=== PATIENT | female | born 1990 | race Caucasian/White ===

== ENCOUNTER 2016-10-03 23:35 | Observation (INO) | payer BC, OTHER ==
[~2016-10-03] VITALS: Ht 154.9 cm; Wt 64.9 kg
== END 2016-10-04 01:15 | disposition home or self-care (01) ==
LOC: SPU 23:35
PROVIDERS: ADMIT Specialist; ATTEND Specialist
DX: O62.9 Abnormality of forces of labor, unspecified (principal); Z3A.38 38 weeks gestation of pregnancy
CPT/HCPCS: 81002; G0378 ×2

== ENCOUNTER 2016-10-05 19:23 | Inpatient (IN) | payer BC ==
[~2016-10-05] VITALS: Ht 154.9 cm; Wt 64.9 kg
[2016-10-05] MEDS: LR 1,000 ML IV SCH (20:22)
[2016-10-05] MEDS ORDERED: OXYTOCIN/NORMAL SALINE 1,000 ML IV SCH (21:24)
[2016-10-05] MEDS ORDERED: TERBUTALINE SULFATE 1 MG/ML VIAL SUBCUT ONE (21:30)
[2016-10-05] MEDS ORDERED: NALBUPHINE HCL 10 MG/ML AMP IVP PRN (21:30)
[2016-10-05 22:37] LABS: WHITE BLOOD COUNT (AUTO) 12.3 K/uL (4.8-10.8)
[2016-10-05 22:41] LABS: HEMATOCRIT 30.9 % (36-48); HEMOGLOBIN 10.3 g/dL (12.0-16.0); MEAN CORPUSCULAR HEMOGLOBIN 27 pg (27-31); MEAN CORPUSCULAR HGB CONC 33 % (32-36); MEAN CORPUSCULAR VOLUME 81 fL (79.0-98.0); PLATELET COUNT (AUTO) 340 K/uL (130-430); RED BLOOD CELL COUNT(AUTO) 3.82 MIL/uL (4.2-6.2); RED CELL DISTRIBUTION WIDTH 14.9 % (9.0-15.0)
[2016-10-05 23:39] LABS: BAND % (MANUAL) 0 % (0-6); LYMPHOCYTES % (MANUAL) 39 % (20-46)
[2016-10-05 23:40] LABS: BASOPHILS % (MANUAL) 0 % (0-2); EOSINOPHILS % (MANUAL) 1 % (0-7); MONOCYTES % (MANUAL) 7 % (0-11)
[2016-10-06 01:01] VITALS: BP_SYST 97
[2016-10-06] MEDS: LR 1,000 ML IV SCH (01:14)
[2016-10-06] MEDS ORDERED: LEVOTHYROXINE SODIUM 0.05 MG TABLET PO SCH (07:00)
[2016-10-06] MEDS ORDERED: MINERAL OIL 30 ML UDC ONE (14:00)
[2016-10-06] MEDS ORDERED: OXYTOCIN/NORMAL SALINE 1,000 ML IV SCH (14:12)
[2016-10-06] MEDS ORDERED: OXYTOCIN/NORMAL SALINE 1,000 ML IV ONE (14:12)
[2016-10-06] MEDS ORDERED: DOCUSATE SODIUM 100 MG CAPSULE PO PRN (14:15)
[2016-10-06] MEDS ORDERED: RHO(D) IMMUNE GLOBULIN/MALTOSE 1500 UNITS/1.3 ML (WINHRO) IM PRN (14:15)
[2016-10-06] MEDS ORDERED: HYDROCORTISONE 0.5%, 28.35 GM TOPICAL CREAM TP PRN (14:15)
[2016-10-06] MEDS ORDERED: MEASLES,MUMPS&RUBELLA VACC/PF 12500 UNIT/0.5 ML VIAL SUBQ PRN (14:15)
[2016-10-06] MEDS ORDERED: HYDROcodone/ACETAMIN 5-325 MG TAB (NORCO/ VICODIN) PO PRN (14:15)
[2016-10-06] MEDS ORDERED: DERMOPLAST SPRAY TP PRN (14:15)
[2016-10-06] MEDS ORDERED: SENNOSIDES/DOCUSATE SODIUM 1 TAB TABLET(SENOKOT-S) PO PRN (14:15)
[2016-10-06] MEDS ORDERED: GLYCERIN/WITCH HAZEL (TUCKS PADS) TP PRN (14:15)
[2016-10-06] MEDS ORDERED: ANUSOL 1 EA SUPP.RECT (PREPARATION H) RC PRN (14:15)
[2016-10-06] MEDS ORDERED: OXYCODONE/ACETAMINOPHEN 5-325 TABLET PO PRN ×2 (14:15)
[2016-10-06] MEDS ORDERED: METHYLERGONOVINE MALEATE 0.2 MG TABLET PO PRN (14:15)
[2016-10-06] MEDS ORDERED: LANOLIN 7 GM OINT. TP PRN (14:15)
[2016-10-06] MEDS ORDERED: IBUPROFEN 600 MG TABLET PO SCH (18:00)
[2016-10-06] MEDS ORDERED: TEMAZEPAM 15 MG CAPSULE PO PRN (21:00)
[2016-10-07 07:20] LABS: BASOPHILS # (AUTO) 0.1 K/uL (0.0-0.2); BASOPHILS % (AUTO) 0.4 % (0.0-2.0); EOSINOPHILS # (AUTO) 0.3 K/uL (0.0-0.4); EOSINOPHILS % (AUTO) 1.7 % (0.0-4.0); HEMATOCRIT 29.7 % (36-48); HEMOGLOBIN 9.3 g/dL (12.0-16.0); LYMPHOCYTES # (AUTO) 3.7 K/uL (1.0-5.5); LYMPHOCYTES % (AUTO) 24.5 % (20.5-51.5); MEAN CORPUSCULAR HEMOGLOBIN 26 pg (27-31); MEAN CORPUSCULAR HGB CONC 31 % (32-36); MEAN CORPUSCULAR VOLUME 82 fL (79.0-98.0); MONOCYTES # (AUTO) 1.1 K/uL (0.0-1.0); MONOCYTES % (AUTO) 7.3 % (1.7-9.3); NEUTROPHILS # (AUTO) 10.1 K/uL (1.8-7.7); NEUTROPHILS % (AUTO) 66.1 % (40.0-70.0); PLATELET COUNT (AUTO) 388 K/uL (130-430); RED BLOOD CELL COUNT(AUTO) 3.64 MIL/uL (4.2-6.2); RED CELL DISTRIBUTION WIDTH 15.4 % (9.0-15.0); WHITE BLOOD COUNT (AUTO) 15.3 K/uL (4.8-10.8)
== END 2016-10-07 14:30 | disposition home or self-care (01) | DRG 775 ==
LOC: OBSVTOIN 19:23 → SPU 19:23
PROVIDERS: ADMIT Specialist; ATTEND Specialist
PROC: 10E0XZZ Delivery of Products of Conception, External Approach (ICD-10-PCS; principal; 2016-10-05)
PROC: 0HQ9XZZ Repair Perineum Skin, External Approach (ICD-10-PCS; 2016-10-05)
DX: O69.81X0 Labor and delivery complicated by cord around neck, without compression, not applicable or unspecified (principal); Z37.0 Single live birth; Z3A.38 38 weeks gestation of pregnancy; O70.0 First degree perineal laceration during delivery
CPT/HCPCS: 36415; 81002-TC; 85007; 85025; 85027; 86592; 86886; 86900; 86901; J2300; J2590

== ENCOUNTER 2022-03-07 10:05 | Emergency (ER) | payer BC ==
[~2022-03-07] VITALS: Ht 152.4 cm; Wt 54.4 kg
[2022-03-07 10:13] VITALS: BP_SYST 117
[2022-03-07 10:15] VITALS: BP_SYST 117
[2022-03-07 11:15] LABS: BILIRUBIN,URINE 1+ (NEGATIVE); BLOOD, URINE 2+ (NEGATIVE); CLARITY/URINE CLEAR (CLEAR); GLUCOSE,URINE TRACE (NEGATIVE); KETONES,URINE TRACE (NEGATIVE); LEUKOCYTE ESTERASE ,URINE TRACE (NEGATIVE); NITRITE, URINE POSITIVE (NEGATIVE); PROTEIN URINE 1+ (NEGATIVE)
[2022-03-07] MEDS ORDERED: CEPH-548 PO (11:20)
[2022-03-07 11:22] LABS: COLOR,URINE ORANGE (YELLOW)
[2022-03-07 11:39] LABS: BACTERIA,URINE FEW /HPF (None Seen); MUCUS,URINE 1+ /LPF (None Seen)
== END 2022-03-07 11:25 | disposition home or self-care (01) ==
LOC: SED 10:05
DX: N39.0 Urinary tract infection, site not specified (principal); R30.0 Dysuria; R39.15 Urgency of urination; Z88.6 Allergy status to analgesic agent; Z79.899 Other long term (current) drug therapy
CPT/HCPCS: 81000; 81025; 87086; 99283